=== PATIENT | male | born 1935 | race Caucasian/White ===

== ENCOUNTER 2017-09-02 23:36 | Emergency (ER) | payer OTHER, MEDICARE ==
[~2017-09-02] VITALS: Ht 175.3 cm; Wt 72.6 kg
[2017-09-02] MEDS ORDERED: fentaNYL CITRATE 100 MCG/2 ML VL IV ONE (23:45)
[2017-09-02] MEDS ORDERED: ONDANSETRON HCL 4 MG/2 ML VIAL IV ONE (23:45)
[2017-09-03] MEDS ORDERED: HYDROcodone-ACET 10/325MG TAB PO ONE ×2 (02:45→05:45)
[2017-09-03 04:18] VITALS: BP 111/70
[2017-09-03] MEDS ORDERED: fentaNYL 50MCG/HR 50 MCG/HR PAT TD SCH (07:00)
== END 2017-09-03 06:22 | disposition home or self-care (01) ==
LOC: ER 23:36 → EDBD 23:36 → ER 09-03 06:22
DX: C34.90 Malignant neoplasm of unspecified part of unspecified bronchus or lung (principal); G89.4 Chronic pain syndrome
CPT/HCPCS: 96374; 96375; 99284; J2405; J3010